=== PATIENT | male | born 1975 | race Native Hawaiian/Other Pacific Islander ===

== ENCOUNTER 2017-06-12 06:59 | Emergency (ER) | payer OTHER ==
[2017-06-12 07:14] VITALS: TEMP 97.8
[2017-06-12] MEDS ORDERED: Bacitracin 500 Units/gm Oint Foilpak UD TOP STA (07:29)
[2017-06-12] MEDS ORDERED: Tetanus/Diphtheria Toxoids 0.5 ml Syringe IM ONE ×2 (07:29→07:37)
[2017-06-12] MEDS ORDERED: Lidocaine 1% w Epi 1:100,000 Inj INJ STA (07:29)
[2017-06-12] MEDS ORDERED: Lidocaine 2% w Epi 1:100,000 Inj IJ ONE (07:36)
[2017-06-12] MEDS ORDERED: Bacitracin 500 Units/gm Oint Foilpak UD ONE (07:36)
--- NOTE | 2017-06-12 07:41 | C.PDOC ---
History Of Present Illness Patient is a 41 year old male presents to Emergency Department for evaluation after sustaining laceration to left forehead prior to arrival. Patient states that he was hit on the left forehead with a metal handle at work. Denies LOC, headache, dizziness, change in sensation, nausea, vomiting, or visual changes. Patient is not up to date with Tetanus vaccination. - HPI Time Seen by Provider: 06/12/17 07:18 Chief Complaint (Nursing): Trauma History Per: Patient History/Exam Limitations: no limitations Onset/Duration Of Symptoms: Hrs Injury Occurred (Timing): Just Before Arrival Location Of Injury: Left: Face (left forehead) Additional History Per: Patient Past Medical History Reviewed: Historical Data, Nursing Documentation, Vital Signs Vital Signs: Last Vital Signs Temp 97.8 F 06/12/17 07:12 Pulse 66 06/12/17 09:05 Resp 16 06/12/17 09:05 BP 135/99 H 06/12/17 09:05 Pulse Ox 96 06/12/17 18:28 Family History: States: Unknown Family Hx - Social History Hx Alcohol Use: No Hx Substance Use: No - Immunization History Hx Tetanus Toxoid Vaccination: No Hx Influenza Vaccination: No Hx Pneumococcal Vaccination: No Review Of Systems Except As Marked, All Systems Reviewed And Found Negative. Constitutional: Negative for: Fever, Chills Eyes: Negative for: Vision Change Gastrointestinal: Negative for: Nausea, Vomiting Skin: Positive for: Other (laceration to left forehead) Neurological: Negative for: Headache, Dizziness Physical Exam - Physical Exam Appears: Non-toxic, No Acute Distress Skin: Warm, Dry Head: Normacephalic, Swelling (left forehead), Laceration (3cm of laceration to left forhead) Eye(s): bilateral: Normal Inspection, PERRL, EOMI Oral Mucosa: Moist Neck: Normal ROM, Supple Extremity: Normal ROM Extremity: Bilateral: Atraumatic Neurological/Psych: Oriented x3, Normal Speech, Normal Cognition ED Course And Treatment O2 Sat by Pulse Oximetry: 96 (on RA) Pulse Ox Interpretation: Normal Progress Note: Tetanus vaccination was administered. Laceration was repaired by me. Patient tolerated procedure well, no immediate complications. Patient is being discharged home, with instructions to return to ED for suture removal. Laceration - Laceration Repair Left forehead Wound Length (In cm): 3cm Description Of Wound: Irregular Wound Cleansed With: Sterile Saline Anesthesia: Lidocaine 1%, With Epi Wound Examination: Irrigated With Saline, No FB With Wound Exploration, No Tendon Injury With Wound Exploration Wound Closure: Suture (9) Suture Technique And Material Used: Interrupted, Nylon Wound Complexity: Simple Disposition - Disposition Disposition: HOME/ ROUTINE Disposition Time: 09:03 Condition: IMPROVED Additional Instructions: Follow up with your PMD within 1-2 days. Return to ED if feel worse. Suture removal in 7-8 days. 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 - Scribe Statement The provider has reviewed the documentation as recorded by the Scribe Debbie Gibson All medical record entries made by the Scribe were at my direction and personally dictated by me. I have reviewed the chart and agree that the record accurately reflects my personal performance of the history, physical exam, medical decision making, and the department course for this patient. I have also personally directed, reviewed, and agree with the discharge instructions and disposition.
[2017-06-12 09:05] VITALS: BP 135/99; PULSE 66; RESP 16
[2017-06-12 09:27] VITALS: O2SAT 96
== END 2017-06-12 09:10 | disposition home or self-care (01) ==
LOC: C.ER 06:59
DX: S01.81XA Laceration without foreign body of other part of head, initial encounter (principal); W22.8XXA Striking against or struck by other objects, initial encounter; Y99.0 Civilian activity done for income or pay; Z23 Encounter for immunization

== ENCOUNTER 2017-06-19 14:00 | Emergency (ER) | payer OTHER ==
[2017-06-19 14:08] VITALS: BMI 28.7
[2017-06-19 14:16] VITALS: BP 124/72; PULSE 72; RESP 18; TEMP 98.1; O2SAT 98
--- NOTE | 2017-06-19 14:16 | C.PDOC ---
History Of Present Illness 41 yr old male presents to the ER for suture removal from the left sided of forehead. Patient states the sutures were placed 5 days ago. Denies fever, chills, vision changes, nausea, vomiting, headache or dizziness. Time Seen by Provider: 06/19/17 14:14 Chief Complaint (Nursing): Suture/Staple Removal History Per: Patient History/Exam Limitations: no limitations Onset/Duration Of Symptoms: Days Ago (5) Past Medical History Reviewed: Historical Data, Nursing Documentation, Vital Signs Vital Signs: Last Vital Signs Temp 98.1 F 06/19/17 14:09 Pulse 72 06/19/17 14:09 Resp 18 06/19/17 14:09 BP 124/72 06/19/17 14:09 Pulse Ox 98 06/19/17 14:20 Family History: States: No Known Family Hx - Social History Hx Alcohol Use: No Hx Substance Use: No - Immunization History Hx Tetanus Toxoid Vaccination: No Hx Influenza Vaccination: No Hx Pneumococcal Vaccination: No Review Of Systems Except As Marked, All Systems Reviewed And Found Negative. Constitutional: Negative for: Fever Eyes: Negative for: Vision Change Gastrointestinal: Negative for: Nausea, Vomiting Neurological: Negative for: Headache, Dizziness Physical Exam - Physical Exam Additional Physical Exam Comments: Appears: Well Appearing. Non-toxic. Skin: No rash. Head: Atraumatic. Normacephalic. (+) Left forehead, [address] Well healing. Eye(s): EOMI Neurological/Psych: Alert. Oriented x3. Gait: Steady. ED Course And Treatment O2 Sat by Pulse Oximetry: 98 (RA) Pulse Ox Interpretation: Normal Medical Decision Making Medical Decision Making: PROGRESS NOTE: 9 sutures removed. Patient instructed wound care. Disposition - Disposition Referrals: Clinic,Med Surg [Primary Care Provider] - Disposition: HOME/ ROUTINE Disposition Time: 14:16 Condition: STABLE Instructions: Stitches Removal (ED) Forms: [facility] (Wolof) - Clinical Impression Clinical Impression: Removal of suture - Scribe Statement The provider has reviewed the documentation as recorded by the Scribe Joyce Martinez Provider Attestation: All medical record entries made by the Scribe were at my direction and personally dictated by me. I have reviewed the chart and agree that the record accurately reflects my personal performance of the history, physical exam, medical decision making, and the department course for this patient. I have also personally directed, reviewed, and agree with the discharge instructions and disposition.
== END 2017-06-19 14:28 | disposition home or self-care (01) ==
LOC: SUPCPDRO 14:00 → C.ER 14:00
DX: Z48.02 Encounter for removal of sutures (principal)